=== PATIENT | female | born 1955 | race Caucasian/White ===

== ENCOUNTER 2019-01-23 07:22 | Emergency (ER) | payer OTHER ==
[~2019-01-23] VITALS: Ht 154.9 cm; Wt 77.6 kg
[2019-01-23 07:24] VITALS: Ht 154.9 cm; Wt 77.6 kg
[2019-01-23 13:08] VITALS: BP 144/75
== END 2019-01-23 13:08 | disposition short-term general hospital (02) ==
LOC: ED 07:22
DX: G93.89 Other specified disorders of brain (principal); E11.9 Type 2 diabetes mellitus without complications; I10 Essential (primary) hypertension; E78.00 Pure hypercholesterolemia, unspecified; Z98.890 Other specified postprocedural states
CPT/HCPCS: 82962; J1100; J2550; J3010

== ENCOUNTER 2019-06-04 20:28 | Observation (INO) | payer OTHER ==
[~2019-06-04] VITALS: Ht 157.5 cm; Wt 88.6 kg
[2019-06-04 20:44] VITALS: Ht 157.5 cm; Wt 88.6 kg
--- NOTE | 2019-06-04 22:05 | NUR ---
PT IN ED FOR GEN ABD PAIN X1 WEEK, STS WORSE TODAY AND USUALY OCCURS AFTER EATING. PT AAO4, RESP E/U, NO DISTRESS.
[2019-06-04 22:11] LABS: BASOPHIL % 0.4 % (0-2); PLATELET COUNT 199 x10^3mcL (130-400)
[2019-06-04 22:13] LABS: RED CELL DISTRIBUTION WIDTH 14.6 % (11.5-14.5)
[2019-06-04 22:21] LABS: CALCIUM 8.7 mg/dL (8.5-10.1); CARBON DIOXIDE 29.2 mmol/L (21-32); CHLORIDE SERUM 105 mmol/L (98-107); CREATININE SERUM 0.5 mg/dL (0.6-1.0); GFR1 > 60 mL/min; GLUCOSE SERUM 127 mg/dL (74-106); POTASSIUM SERUM 3.9 mmol/L (3.5-5.1); SODIUM SERUM 144 mmol/L (136-145)
[2019-06-04 22:22] LABS: ALBUMIN 3.4 g/dL (3.4-5.0)
[2019-06-04 22:54] LABS: ALKALINE PHOSPHATASE 99 U/L (46-116); ALT/SGPT 26 U/L (14-59); AST/SGOT 22 U/L (15-37); BILIRUBIN TOTAL 0.5 mg/dL (0.20-1.00); LIPASE 105 IU/L (73-393); TOTAL PROTEIN, SERUM 6.7 g/dL (6.4-8.2)
--- NOTE | 2019-06-04 23:28 | NUR ---
[place] [facility] IN POS[place] OF COMFORT, RESP E/U, NO DISTRESS.
[2019-06-05 00:09] LABS: UA SPECIFIC GRAVITY 1.015 (1.005-1.035)
[2019-06-05 00:10] LABS: microscopic required? YES; urine erythrocyte TRACE (NEGATIVE)
--- NOTE | 2019-06-05 00:56 | NUR ---
PT AAO4, RESP E/U, STS RIDE HOME. FAMILY AT BEDSIDE.
--- NOTE | 2019-06-05 01:51 | NUR ---
REPORT GIVEN TO ELEAZAR CRAWFORD TO ASSUME CARE.
[2019-06-05] MEDS ORDERED: METFORMIN HYDR500 M1 PO (01:53)
[2019-06-05] MEDS ORDERED: ENALAPRIL MALE2.5 MG PO (01:54)
[2019-06-05] MEDS ORDERED: LIPITOR10 MG GT (01:54)
--- NOTE | 2019-06-05 02:04 | NUR ---
REPORT TAKEN FROM AMISHA IN THE ER. PATIENT ROOM IS READY FOR ARRIVAL.
--- NOTE | 2019-06-05 02:40 | NUR ---
PT TRANSFERRED TO [facility] BY [facility] BY MYSELF AND GEREMIAS EMT. PT OF FULL CM FOR TRANSFER. PT ACCEPTED BY YVETTE BUSH TO ASSUME PT CARE. PT AOX4, RESP EVEN AND UNLABORED, NO ACUTE DISTRESS NOTED.
[2019-06-05 02:41] VITALS: BP 138/76
[2019-06-05 06:14] VITALS: BP 122/66
--- NOTE | 2019-06-05 06:55 | NUR ---
PT ABLE TO REST DURING THE NIGHT, DENIED CHEST PAIN, AND SOB. MILD ABD PAIN, GIVEN MORPHINE IN ER. WILL REPORT TO DAY SHIFT NURSE AND ENDORSE CARE
--- NOTE | 2019-06-05 07:15 | NUR ---
RECEIVED PT FROM [place] RN. PT AA/OX4. COMPLAINT OF MILD MID EPIGASTRIC ABDOMINAL PAIN. RATES 2/10. CONTINUOUS. WORSE AFTER EATING. DESCRIBES BURNING/ACHING. DENIES N/V. NO SOB ON ROOM AIR. DENIES CHEST PAIN. CALM/COOPERATIVE. IV WNL TO RAC, NO REDNESS, NO SWELLING, NO INFILTRATION. PATENT AND FLUSHES WELL. SALINE LOCKED. NPO EXCEPT MEDS. BED IN LOW POSITION. CALL LIGHT WITHIN REACH. WILL CONTINUE TO MONITOR.
[2019-06-05 07:50] VITALS: BP 138/70
--- NOTE | 2019-06-05 12:10 | NUR ---
PT LAYING IN BED. AA/OX4. REPOSITIONS INDEPENDENTLY. NO S/S OF ACUTE DISTRESS. COMPLAINT OF MILD HEADACHE, 3/10, CONTINUOUS. DECLINED TO PAIN MEDICATION/TYLENOL. NO DIZZINESS. NO N/V. NO SOB ON ROOM AIR. FAMILY AT BEDSIDE. PT CALM/COOPERATIVE AT THIS TIME. NO CHEST PAIN. BED IN LOW POSITION. CALL LIGHT WITHIN REACH. WILL CONTINUE TO MONITOR.
[2019-06-05 12:24] VITALS: BP 124/58
[2019-06-05 13:41] VITALS: BP 124/58
--- NOTE | 2019-06-05 14:23 | NUR ---
PT BEING DISCHARGED TO HOME. AWAKE, ALERT, ORIENTED X4. NO S/S OF ACUTE DISTRESS. DENIES ABD. PAIN AT THIS TIME. NO CHEST PAIN. NO SOB ON ROOM AIR. CALM/COOPERATIVE. NO N/V. TOLERATING CCHO DIET WELL. DISCHARGE EDUCATION PROVIDED TO PATIENT. INSTRUCTED TO FOLLOW UP WITH PCP. VERBALIZED UNDERSTANDING. TELE REMOVED, NSR ON TELE. IV REMOVED FROM RAC, CATHETER IN TACT. PRESSURE APPLIED. SITE WNL. BELONGINGS WITH PATIENT. AMBULATORY WITH FULL ROM, GAIT STEADY. ESCORTED TO DISCHARGE LOBBY BY MALI CAMERON. GAIT STEADY. ACCOMPANIED BY FAMILY MEMBER.
== END 2019-06-05 14:24 | disposition home or self-care (01) | DRG 392 ==
LOC: ED 20:28 → DU 06-05 01:22
PROVIDERS: Emergency Medicine; ADMIT Internal Medicine
DX: R10.11 Right upper quadrant pain (principal); R94.31 Abnormal electrocardiogram [ECG] [EKG]; I10 Essential (primary) hypertension; E11.9 Type 2 diabetes mellitus without complications; E78.5 Hyperlipidemia, unspecified; K76.0 Fatty (change of) liver, not elsewhere classified; E66.9 Obesity, unspecified; Z68.35 Body mass index [BMI] 35.0-35.9, adult; Z79.82 Long term (current) use of aspirin
CPT/HCPCS: 82962; 85378; G0378; J1885; J2270; J2405; J7030; Q0092

== ENCOUNTER 2019-09-12 07:29 | Emergency (ER) | payer OTHER ==
[~2019-09-12] VITALS: Ht 160 cm; Wt 86.2 kg
[~2019-09-12 07:29] MED LIST: ENALAPRIL MALE2.5 MG PO; LIPITOR10 MG GT; METFORMIN HYDR500 M1 PO
[2019-09-12 07:33] VITALS: Ht 160 cm; Wt 86.2 kg
[2019-09-12 08:15] LABS: BASOPHIL % 0.6 % (0-2); PLATELET COUNT 137 x10^3mcL (130-400)
[2019-09-12 08:16] LABS: RED CELL DISTRIBUTION WIDTH 16.1 % (11.5-14.5)
[2019-09-12 08:17] LABS: CALCIUM 8.5 mg/dL (8.5-10.1); CARBON DIOXIDE 33.4 mmol/L (21-32); CHLORIDE SERUM 99 mmol/L (98-107); CREATININE SERUM 0.7 mg/dL (0.6-1.0); GFR1 > 60 mL/min; GLUCOSE SERUM 131 mg/dL (74-106); SODIUM SERUM 139 mmol/L (136-145)
[2019-09-12 08:22] LABS: ALKALINE PHOSPHATASE 105 U/L (46-116); ALT/SGPT 58 U/L (14-59); AST/SGOT 116 U/L (15-37); BILIRUBIN TOTAL 0.45 mg/dL (0.20-1.00); HDL CHOLESTEROL 37 mg/dL (40-60); TOTAL PROTEIN, SERUM 7.2 g/dL (6.4-8.2); TRIGLYCERIDES 137 mg/dL (<150)
[2019-09-12 08:23] LABS: ALBUMIN 3.3 g/dL (3.4-5.0); CHOLESTEROL 102 mg/dL (<200); CHOLESTEROL/HDL RATIO 2.8
[2019-09-12 10:21] VITALS: BP 121/70
[2019-09-12 11:28] LABS: microscopic required? YES; urine erythrocyte NEGATIVE (NEGATIVE)
== END 2019-09-12 10:21 | disposition home or self-care (01) ==
LOC: ED 07:29
PROVIDERS: Specialist
DX: J10.1 Influenza due to other identified influenza virus with other respiratory manifestations (principal); R10.9 Unspecified abdominal pain
CPT/HCPCS: 82962; 87804; J1885; J2405; J7030; Q0092